=== PATIENT | male | born 1965 | race African-American/Black ===

== ENCOUNTER 2017-01-18 18:06 | Emergency (ER) | payer MEDICAID ==
[~2017-01-18] VITALS: Ht 180.3 cm; Wt 84.0 kg
[2017-01-18] MEDS ORDERED: ACETAMINOPHEN WITH CODEINE 300/30MG TABLET PO ONE (18:30)
[2017-01-18 19:12] VITALS: BP 124/88
== END 2017-01-18 19:13 | disposition home or self-care (01) ==
LOC: ER 18:46
DX: S01.01XA Laceration without foreign body of scalp, initial encounter (principal); R51 Headache; X99.8XXA Assault by other sharp object, initial encounter; Y93.89 Activity, other specified; Y92.89 Other specified places as the place of occurrence of the external cause; Z86.59 Personal history of other mental and behavioral disorders
CPT/HCPCS: 12002; 99283; Z7610

== ENCOUNTER 2017-01-23 13:40 | Emergency (ER) | payer OTHER, MEDICAID | END 2017-01-23 16:36 | disposition left against medical advice (07) | LOC: ER 14:46 | DX: Z48.02 Encounter for removal of sutures (principal); Z53.21 Procedure and treatment not carried out due to patient leaving prior to being seen by health care provider ==